=== PATIENT | female | born 2005 | race Two or more races ===

== ENCOUNTER 2023-12-31 14:35 | Outpatient (RCR) | payer MEDICAID, SELFPAY | END 2024-01-01 23:59 | disposition home or self-care (01) | LOC: CPTX 14:35 | PROVIDERS: PCP Family Medicine; Referring Provider Family Medicine; Visit Provider Family Medicine | DX: Z53.8 Procedure and treatment not carried out for other reasons (principal) ==

== ENCOUNTER 2024-04-23 04:03 | Emergency (ER) | payer MEDICAID, SELFPAY ==
[2024-04-23 04:04] VITALS: BMI 37.2
[2024-04-23 04:21] VITALS: BP 119/82; PULSE 120; RESP 20; TEMP 38; O2SAT 96
--- NOTE | 2024-04-23 04:52 | PD.EDURI ---
Upper Respiratory Inf. RME/HPI General Chief Complaint: Flu Like Symptoms Stated Complaint: COUGH, CHILLS Time Seen by Provider: 04/23/24 04:34 Arrival date/time: 04/23/24 04:03 18F with no significant PMH presents to ED with 3 days of cough and fevers/chills. Son has Flu A. Limitations: no limitations Related Data Home Medications ?Medication ?Instructions ?Recorded ?Confirmed [id number] 1 mg 1 tab PO QDAY 04/13/22 05/12/22 tablet aspirin 81 mg chewable tablet 81 mg PO QDAY 04/15/22 05/12/22 ferrous sulfate 325 mg (65 mg 325 mg PO QDAY 04/15/22 05/12/22 iron) capsule,extended release Previous Rx's ?Medication ?Instructions ?Recorded acetaminophen 300 mg-codeine 15 mg 1 tab PO Q12H PRN pain #14 tabs 06/01/22 tablet amoxicillin 500 mg-potassium 1 tab PO Q12H #30 tabs 06/01/22 clavulanate 125 mg tablet (Augmentin) nifedipine 30 mg tablet,extended 30 mg PO QDAY #30 tabs 06/01/22 release 24 hr (Procardia XL) prednisone 50 mg tablet 50 mg PO QDAY #5 tabs 10/02/22 loratadine 10 mg capsule 10 mg PO QDAY #30 caps 10/04/22 Allergies Allergy/AdvReac Type Severity Reaction Status Date / Time Penicillins Allergy Verified 04/23/24 04:05 Review of Systems Review of Systems Systems Reviewed: All systems reviewed, normal except as documented Constitutional Constitutional: Reports system reviewed and no additional complaints, except as documented, Reports as per HPI, Reports chills, Reports fever(s) and Denies headache(s) ENT Ears, Nose, Mouth, and Throat: Denies disequilibrium and Denies headache(s) Cardiovascular Cardiovascular: Reports system reviewed and no additional complaints, except as documented, Denies chest pain and Denies dyspnea Respiratory Respiratory: Reports system reviewed and no additional complaints, except as documented, Reports as per HPI, Reports cough and Denies dyspnea Gastrointestinal Gastrointestinal: Reports system reviewed and no additional complaints, except as documented, Denies abdominal pain, Denies nausea and Denies vomiting Neurologic Neurologic: Reports system reviewed and no additional complaints, except as documented, Denies confusion, Denies disequilibrium and Denies headache(s) Psychiatric Psychiatric: Denies confusion Past Medical History Past Medical History NEUROLOGIC: Negative Neurological Disorders CARDIAC: Negative Cardiac Disorders or Congestive Heart Failure RESPIRATORY: Negative Chronic Obstructive Pulmonary Disease (COPD) GASTROINTESTINAL: Negative Gastrointestinal Disorders, Hepatitis or Colorectal Cancer GENITOURINARY: Negative Genitourinary Disorders, Renal Disease or Prostate Cancer REPRODUCTIVE: Negative Breast Cancer, Pelvic Inflammatory Disease or Testicular Cancer MUSCULOSKELETAL: Negative Musculoskeletal Disorders, Bone Cancer or Carpal Tunnel Syndrome ENT: Negative Cataracts ENDOCRINE: Negative Endocrine Disorders, Diabetes Mellitus Type 1 or Diabetes Mellitus Type 2 HEMATOLOGIC: Negative Blood Disorders OTHER HISTORY: Negative Hospitalization, Autoimmune Disease, Down Syndrome, Developmental Delay, Shingles, Falls, Blood Transfusions, Blood Transfusion Reaction, Anesthesia Reactions, Organ Transplant, Chemotherapy, Radiation Therapy, Hyperbaric Therapy, MRSA, VRSA, Vancomycin-Resistant Enterococci, Human Immunodeficiency Virus (HIV), Chicken Pox, Measles, Mumps, Rubella (Emirati Measles), Pertussis, Clostridium Difficile, Cancer, Breast Cancer, Cervical Cancer, Colorectal Cancer, Lung Cancer, Ovarian Cancer, Prostate Cancer or Testicular Cancer Family History FAMILY HISTORY: Negative Family Cardiac Disorders, Family Cancer, Family Surgery or Family Anesthesia Reaction Surgical History SURGICAL: Negative Cardiac Surgery, Open Heart Surgery, Coronary Artery Bypass Graft, Valve Replacement, Vascular Surgery, Coronary Stent, Cardiac Catheterization, Pacemaker, Angiogram, Auto Implanted Cardiovert Defib, Carotid Endarterectomy, Endocrine Surgery, Thyroidectomy, Ear Surgery, Tympanostomy Tube, Eye Surgery, Nose Surgery, Oral Surgery, Tonsillectomy, Adenoidectomy, Cochlear Implant, Corneal Transplant, Throat Surgery, Abdominal Surgery, Tracheostomy, Gastric Bypass Surgery, Gastrostomy, Bowel Surgery, Nephrectomy, Transurethral Resection, Joint Replacement, Amputation, Open Reduction Internal Fixation, Arthroscopy, Neurologic Surgery, Brain Shunt, Mastectomy, Lumpectomy, Hysterectomy, Tubal Ligation, Section, Vasectomy or Organ Transplant Social History SMOKING STATUS: Never smoker SECOND HAND EXPOSURE: No ED Exam General Limitations: Present no limitations General appearance: Present alert and in no apparent distress Head Head exam: Present atraumatic Eye Eye exam: Present normal appearance, PERRL and EOMI ENT ENT exam: Present normal exam, normal oropharynx and mucous membranes moist Neck Neck exam: Present normal inspection, full ROM and trachea midline Chest Chest inspection: Present normal inspection and symmetric chest wall rise Respiratory Respiratory exam: Present normal lung sounds bilaterally Cardiovascular Cardiovascular exam: Present regular rate, normal rhythm and normal heart sounds Abdominal Exam Abdominal exam: Present soft and normal bowel sounds Extremities Exam Extremities exam: Present normal inspection and full ROM Back Exam Back exam: Present normal inspection and full ROM Neurological Exam Neurological exam: Present alert, oriented X3 and CN II-XII intact Psychiatric Psychiatric exam: Present normal affect and normal mood Skin Skin exam: Present warm, dry, intact and normal color Course Quality Measures none Vital Signs Vital signs: Vital Signs Temperature 100.4 F 04/23/24 04:21 Pulse Rate 120 H 04/23/24 04:21 Respiratory Rate 20 04/23/24 04:21 Blood Pressure 119/82 04/23/24 04:21 Pulse Oximetry (%) 96 04/23/24 04:21 Oxygen Delivery Method Room Air 04/23/24 04:21 O2 at 96% on RA and WNLs Upper Respiratory Infection MDM Narrative MDM Narrative:: 18F with no significant PMH presents to ED with 3 days of cough and fevers/chills. Son has Flu A. Physical exam reveals clear ENT and lungs. Patient is afebrile, calm, and alert. Likely influenza. Patient data External records reviewed:: [facility] previous records Clinical information provided by:: patient Social determinants that could affect healthcare access:: none Patient has the following chronic illnesses:: none How is presenting disease/condition affected by chronic disease/condition?: no chronic disease Evaluation data The following diagnostics were reviewed and interpreted by me:: other (specify) (none) Lab and/or radiology exams considered but not ordered:: not ordered Interpretation Summary: n/a Medications / Prescriptions Medications or Prescriptions considered but not ordered:: not ordered Medication administrations:: n/a Consultations Consultation(s) initiated? (list below): No Diagnosis Upper Respiratory Differential Diagnosis: upper respiratory infection, croup, otitis media, sinusitis, viral infection, bronchitis, influenza and pharyngitis Most likely diagnosis given after review of the tests above:: influenza Admission Indicated Admission indicated?: not indicated Admission Request Was there a request for admission?: No Disposition Plan Disposition Plan: Discharge Discharge Attestation Discharge Attestation: The patient and all family members were given an opportunity to ask questions and understood the discharge instructions. Discharge instructions specifically effects, indications for sooner follow up or return to the emergency department, and the expected course of current diagnosis. Patient condition: Stable Discharge Plan Plan Patient Disposition: HOME (Self Care) Disposition Comment: Stable Prescriptions/Referrals Prescriptions/Med Rec: No Action 1 mg Tablet 1 tab PO QDAY nifedipine [Procardia XL] 30 mg tablet extended release 24hr 30 mg PO QDAY Qty: 30 0RF acetaminophen-codeine 300-15 mg tablet 1 tab PO Q12H PRN (Reason: pain) Qty: 14 0RF amoxicillin-pot clavulanate [Augmentin] 500-125 mg tablet 1 tab PO Q12H Qty: 30 0RF prednisone 50 mg tablet 50 mg PO QDAY Qty: 5 0RF loratadine 10 mg capsule 10 mg PO QDAY Qty: 30 0RF aspirin [Baby Aspirin] 81 mg Tablet,Chewable 81 mg PO QDAY ferrous sulfate 325 mg (65 mg iron) Capsule, Extended Release 325 mg PO QDAY Problem List Clinical Impression: Influenza Patient/Caregiver Discharge Instructions Education Materials: ED Influenza (Adult) Additional Instructions: Please follow-up with PCP within 24-48 hours and return immediately if symptoms worsen. Ibuprofen/Tylenol can be used simultaneously for greater fever/pain control. Benadryl is good for cough, congestion, and sleep. Print Language: Welsh Stand Alone Forms: Patient Portal Info Letter PA/RETAIL PERSONAL BANKER Supervising Physician PA/RETAIL PERSONAL BANKER Supervising Physician: Dr. Mercado
== END 2024-04-23 04:56 | disposition home or self-care (01) ==
LOC: SERX 05:03
PROVIDERS: Emergency Provider Emergency Medicine; PCP Obstetrics & Gynecology
DX: J11.1 Influenza due to unidentified influenza virus with other respiratory manifestations (principal)
CPT/HCPCS: 99281

== ENCOUNTER 2025-02-22 12:33 | Observation (INO) | payer MEDICAID, SELFPAY ==
[2025-02-22] VITALS (10 sets, daily range): BP systolic 112; BP diastolic 60; PULSE 93–106; RESP 17–100; TEMP 36.8; O2SAT 97–98; BMI 43.2
== END 2025-02-22 13:55 | disposition home or self-care (01) ==
PROVIDERS: Admitting Provider Specialist; Visit Provider Specialist
DX: O26.853 Spotting complicating pregnancy, third trimester (principal); Z3A.34 34 weeks gestation of pregnancy
CPT/HCPCS: 59025; 59899

== ENCOUNTER 2025-03-19 05:32 | Inpatient (IN) | payer MEDICAID, SELFPAY ==
[2025-03-16 09:14] LABS: Basophils # (Auto) 0.1 Thou/mm3 (0.0-0.2); Basophils % (Auto) 1 % (0-2.5); Eosinophils # (Auto) 0.1 Thou/mm3 (0.0-0.5); Eosinophils % (Auto) 3 % (0-10); Hematocrit 33.2 % (36.0-46.0); Hemoglobin 11.7 g/dL (12.0-16.0); Immature Granulocytes Auto 0.01 Thou/mm3 (0.00-0.00); Lymphocytes # (Auto) 1.6 Thou/mm3 (1.0-4.8); Lymphocytes % (Auto) 28 % (10-50); Mean Corpuscular HGB Conc 35.2 g/dl (31.0-37.0); Mean Corpuscular Hemoglobin 30.2 pg (25.0-35.0); Mean Corpuscular Volume 86 fL (80-100); Monocytes # (Auto) 0.5 Thou/mm3 (0.0-0.8); Monocytes % (Auto) 8 % (0-12); Neutrophils # (Auto) 3.4 Thou/mm3 (1.8-7.7); Neutrophils % (Auto) 60 % (37-80); Nucleated Red Blood Cell # 0.00 Thou/mm3 (0.00-0.00); Nucleated Red Blood Cell % 0 /100 WBC (0); Platelet Count 203 Thou/mm3 (140-440); RDW Standard Deviation 38.5 fL (36.4-46.3); Red Blood Count 3.88 Miln/mm3 (4.00-5.20); White Blood Count 5.7 Thou/mm3 (3.6-11.0)
[2025-03-16 09:30] LABS: INR 1.0 (0.9-1.3); Partial Thromboplastin Time 28.5 Seconds (22.0-36.0); Prothrombin Time 10.3 Seconds (9.0-12.2)
[2025-03-16 09:34] LABS: Alanine Aminotransferase 27 U/L (10-49); Albumin, Serum 4.0 gm/dL (3.5-5.0); Albumin/Globulin Ratio 2.1 (1.2-2.2); Alkaline Phosphatase 148 U/L (46-116); Anion Gap 12 (7-16); Aspartate Amino Transferase 28 U/L (0-34); BUN/Creatinine Ratio 16 Ratio (12-20); Bilirubin,Total 0.3 mg/dL (0.3-1.2); Blood Urea Nitrogen 8 mg/dL (9-23); Calcium 8.8 mg/dL (8.3-10.6); Calcium (Corrected) 8.8 mg/dL (8.5-10.1); Carbon Dioxide 22.4 mMol/L (20.0-31.0); Chloride 106 mMol/L (98-107); Creatinine (Component) 0.5 mg/dL (0.6-1.3); Globulin 1.9 gm/dL (2.3-3.5); Glucose 92 mg/dL (74-106); Osmolality,Calculated 277 (275-295); Potassium 4.0 mMol/L (3.4-5.1); Sodium 140 mMol/L (136-145); Total Protein 5.9 gm/dL (5.7-8.2); eGFR > 60 See Note
[2025-03-16 09:57] LABS: Syphilis Nonreactive (Nonreactive)
--- NOTE | 2025-03-17 13:17 | ESHP_ITS ---
RE: MEMO PATEL : 2005 DATE OF ADMISSION: 03/19/2025 HISTORY OF PRESENT ILLNESS: This is a 19-year-old 2, para 1-0-0-1 with due date of 04/02/2025 with intrauterine at 38 weeks and 0 days on March 19 who presents for repeat delivery. Patient's care has been complicated by borderline systolic hypertension. She does not take any antihypertensives. Patient is a gestational diabetic, diet controlled. ALLERGIES: PENICILLIN. MEDICATIONS: 1. multivitamin one p.o. daily. 2. Aspirin 81 mg one p.o. daily. PAST MEDICAL HISTORY: delivery, gestational hypertension, gestational diabetes mellitus class A1, body mass index 45. OBSTETRIC HISTORY: May 2022, 37 weeks delivery, 5 pounds 7 ounce male. PAST SURGICAL HISTORY: delivery 2022. REVIEW OF SYSTEMS: Denies any chest pain, palpitations, cough, fever, shortness of breath or lower extremity pain. PHYSICAL EXAMINATION: Blood pressure 155/88, heart rate 82, respirations 19, temperature is 98.6. HEENT: Oropharynx and sclerae clear. Lungs: Clear to auscultation bilaterally. Heart: Regular rate and rhythm. Abdomen: Gravid consistent with estimated weight 8 pounds. Pelvic: See RN notes. Extremities: Nontender. Skin: No gross rashes or lesions. Neurological: No focal deficits. ASSESSMENT AND PLAN: Intrauterine at 38 weeks, HTN, GDMA1, Previous delivery, elects repeat delivery.. Repeat delivery. Informed consent was obtained. The patient made aware of the risks, complications, alternative, and benefits of the proposed procedure and she agrees. DT: 10:17:23 TT: 13:16:00 Ref: [id number] - TID: [id number] MTDD
[2025-03-19] VITALS (19 sets, daily range): BP systolic 115–146; BP diastolic 77–91; PULSE 89–117; RESP 16–30; TEMP 36.7–37.1; O2SAT 96–99; BMI 45.0
[2025-03-19] MEDS: RINGERS LACTATED 1000 ML 1,000 ML 999 ML IV (06:00)
[2025-03-19 06:18] LABS: Collection Type, Urine Clean Catch
[2025-03-19 06:40] LABS: Alanine Aminotransferase 28 U/L (10-49); Albumin, Serum 4.2 gm/dL (3.5-5.0); Albumin/Globulin Ratio 2.1 (1.2-2.2); Alkaline Phosphatase 160 U/L (46-116); Anion Gap 11 (7-16); Aspartate Amino Transferase 24 U/L (0-34); BUN/Creatinine Ratio 24 Ratio (12-20); Bilirubin,Total 0.3 mg/dL (0.3-1.2); Blood Urea Nitrogen 12 mg/dL (9-23); Calcium 9.4 mg/dL (8.3-10.6); Calcium (Corrected) 9.4 mg/dL (8.5-10.1); Carbon Dioxide 22.6 mMol/L (20.0-31.0); Chloride 106 mMol/L (98-107); Creatinine (Component) 0.5 mg/dL (0.6-1.3); Estimated Creatinine Clearance 217.9 mL/min (>60); Globulin 2.0 gm/dL (2.3-3.5); Glucose 104 mg/dL (74-106); LDH (Lactate Dehydrogenase) 169 U/L (120-246); Osmolality,Calculated 279 (275-295); Potassium 4.1 mMol/L (3.4-5.1); Sodium 140 mMol/L (136-145); Total Protein 6.2 gm/dL (5.7-8.2); Uric Acid 4.1 mg/dL (3.1-7.8); eGFR > 60 See Note
[2025-03-19 06:44] LABS: Basophils # (Auto) 0.0 Thou/mm3 (0.0-0.2); Basophils % (Auto) 1 % (0-2.5); Eosinophils # (Auto) 0.1 Thou/mm3 (0.0-0.5); Eosinophils % (Auto) 1 % (0-10); Hematocrit 35.1 % (36.0-46.0); Hemoglobin 12.2 g/dL (12.0-16.0); Immature Granulocytes Auto 0.02 Thou/mm3 (0.00-0.00); Lymphocytes # (Auto) 2.0 Thou/mm3 (1.0-4.8); Lymphocytes % (Auto) 29 % (10-50); Mean Corpuscular HGB Conc 34.8 g/dl (31.0-37.0); Mean Corpuscular Hemoglobin 30.3 pg (25.0-35.0); Mean Corpuscular Volume 87 fL (80-100); Monocytes # (Auto) 0.5 Thou/mm3 (0.0-0.8); Monocytes % (Auto) 7 % (0-12); Neutrophils # (Auto) 4.3 Thou/mm3 (1.8-7.7); Neutrophils % (Auto) 62 % (37-80); Nucleated Red Blood Cell # 0.00 Thou/mm3 (0.00-0.00); Nucleated Red Blood Cell % 0 /100 WBC (0); Platelet Count 220 Thou/mm3 (140-440); RDW Standard Deviation 39.5 fL (36.4-46.3); Red Blood Count 4.02 Miln/mm3 (4.00-5.20); White Blood Count 7.0 Thou/mm3 (3.6-11.0)
--- NOTE | 2025-03-19 06:52 | PD.ADDHP ---
Addendum History & Physical Addendum Date of report being addended: 03/19/25 Narrative: Pt examined . No changes .
--- NOTE | 2025-03-19 06:53 | ESOP_ITS ---
Operative Note - MEDICAL PARASITOLOGIST Procedure Date of procedure: 03/19/25 Procedure Performed: Repeat Low Transverse Delivery via Pfanensteil Skin Incision Indication: IUP 38w0d HTN Prior C/S elects Repeat C/S Pre-Op diagnosis: IUP 38w0d HTN Prior C/S elects Repeat C/S Post-Op diagnosis: IUP 38w0d HTN Prior C/S elects Repeat C/S Anesthesia type: Spinal Procedure description: After proper informed consent was obtained and the patient was made aware of the risks, complications, alternatives and benefits of the proposed procedure she was taken to the operating room where she underwent induction of spinal anesthesia. She was prepped and draped in the usual sterile fashion. A timeout was performed.? A Pfannenstiel skin incision was made with the scalpel and carried through to the underlying layer of fascia with the Bovie. The fascia was nicked in the midline incision and the incision was extended bilaterally with the Bovie. The inferior aspect of the fascial incision was grasped with Jad clamps elevated and the underlying rectus muscle dissected off with the Bovie. The superior aspect the fascial incision was grasped with Jad clamps elevated and the underlying rectus muscle dissected off with the Bovie. The rectus muscles were in the midline. The peritoneum was grasped between 2 Kramer clamps and entered sharply with the Metzenbaum scissors. The peritoneum was extended superiorly and inferiorly with good visualization of the bladder. The vesicouterine peritoneum was incised transversely and the bladder flap created digitally. A [place] blade was inserted. A low transverse incision was made in the uterus with a scapel and the incision was extended digitally. The 's head delivered and the mouth and nose were suctioned with the bulb suction. The shoulder and body delivered atraumatically. The cord was clamped after 30 second delayed cord clamping and the cord was cut.? The live female was handed off to the waiting Pediatric staff, cord blood was collected for lab testing. The placenta was removed complete and intact. The uterus was exteriorized and cleared of all clots and debris. The uterine incision was closed with #1-0 chromic catgut suture in a running interlocking fashion. A second layer of the same suture was used to imbricate the first layer and obtain excellent hemostasis. The vesicouterine peritoneum was closed with 2-0 chromic catgut suture in a running fashion. The firm uterus was returned to the abdomen. The gutters were cleared of all clots and debris. The peritoneum was closed with 0 chromic catgut suture in running fashion. The rectus muscle was closed with 0 chromic catgut suture. The fascia was closed with 0 Vicryl beginning at each angle and ending in the center in a running fashion. The subcutaneous tissue was irrigated with warmed normal saline solution and found to be hemostatic. The subcutaneous tissue was closed with 2-0 chromic catgut suture in a running fashion. The skin was closed with 4-0 Monocryl. A Dermabond Prineo dressing was applied and a sterile pressure dressing was applied.? She tolerated the procedure well. Counts were correct. I discussed with the patient the nature of her condition, intraoperative findings and expectation for recovery all? questions answered Specimen: none Estimated blood loss (ml): 700 Findings: Live baby girl APGARS 8 and 9 Weight 8lbs 3 oz. Amniotic fluid clear Cephalic Placenta removed complete and intact Normal appearing uterus, ovaries and tubes Complications: none Surgical staff Daniel Sam, Surgeon Nikolay ANDREWS Operation Date: 03/19/25 07:45 <No data on this case meets the specified criteria> Diagnosis Discharge Diagnosis (1) delivery delivered: Status: Acute Problem List Completed Was Problem List Reviewed/Reconciled?: Yes
--- NOTE | 2025-03-19 06:53 | PD.LDDS ---
DS: Providers Provider Date of admission: 03/19/25 05:32 Primary care physician: Physician No Primary/Family Admitting Provider: Sagar Sam MD Attending Provider on Admission: Sagar Sam MD Attending Provider on DC: Sagar Sam MD Discharging Provider: Sagar Sam MD DS: Diagnosis Problem List Completed Was Problem List Reviewed/Reconciled?: Yes Summary/Hosp Course Peripartum Data Delivery Method: Low Transverse Procedures: Procedures Operation Date: 03/19/25 07:45 <No data on this case meets the specified criteria> Time Spent with Patient Time attestation: Total time spent providing and/or coordinating discharge services: Exam Vital Signs Temp Pulse Resp BP Pulse Ox O2 Del Method 98.2 F 96 16 132/91 H 99 Room Air 03/19/25 05:51 03/19/25 05:57 03/19/25 05:51 03/19/25 05:57 03/19/25 06:01 03/19/25 05:51 Discharge Plan Plan Patient Disposition: HOME (Self Care) Patient condition on transfer: Stable Prescriptions/Referrals Prescriptions/Med Rec: New ibuprofen 600 mg tablet 600 mg PO Q6H PRN (Reason: fever or pain) Qty: 30 0RF Continued lzyxnqgw-[id number]-Pb-FA 1 mg Tablet 1 tab PO QDAY Discontinued aspirin [Baby Aspirin] 81 mg Tablet,Chewable 81 mg PO QDAY Referrals: No Primary/Family,Physician [Primary Care Provider] Patient/Caregiver Discharge Instructions Discharge Activity: activity as tolerated Other Discharge Activity Instructions:: Follow up office 1 weeks. Education Materials: C Section Dc Print Language: Syrian Stand Alone Forms: Nila Award Info., Patient Portal Info Letter Planned Discharge Date 03/21/25
[2025-03-19 06:54] LABS: Fibrinogen 525 mg/dL (175-375); INR 1.0 (0.9-1.3); Partial Thromboplastin Time 28.5 Seconds (22.0-36.0); Prothrombin Time 10.2 Seconds (9.0-12.2)
[2025-03-19 06:58] LABS: Syphilis Nonreactive (Nonreactive)
[2025-03-19 07:06] LABS: Bacteria,Urine Rare; Bilirubin,Urine Negative (Negative); Blood,Urine Negative (Negative); Clarity,Urine Clear (Clear/Hazy); Color,Urine Lt-Yellow (Lt Yel-Yel); Glucose, Urine Negative (Negative); Ketones,Urine Negative (Negative); Leukocyte Esterase,Urine Positive (Negative); Nitrite,Urine Negative (Negative); PH,Urine 6.5 (5.0-7.0); Protein,Urine Negative (Neg - Trace); RBC,Urine 1 /hpf (0-3); Specific Gravity,Urine 1.026 (1.001-1.035); Squamous Epithelial Cell,Urine 10 /hpf (0-5); Urobilinogen,Urine Negative mg/dL (0.0-1.0); WBC,Urine 1 /hpf (0-5)
[2025-03-19 07:23] LABS: Creatinine,Random Urine 80 mg/dL (30-125); Protein Total, Random Urine 29 mg/dL (1-14)
[2025-03-19] MEDS: CLINDAMYCIN 900MG IVPB 900 MG in PRE-MIXED 1 BAG 50 MG IV (07:25)
[2025-03-19] MEDS: METOCLOPRAMIDE INJ 5 MG/ML VIAL 2 ML 10 MG IVP (07:26)
[2025-03-19] MEDS: FAMOTIDINE INJ 10 MG/ML VIAL 2 ML 20 MG IV (07:26)
[2025-03-19] MEDS: GENTAMICIN/NS 80 MG IVPB 80 MG in PRE-MIXED 1 BAG 50 MG IV (07:26)
--- NOTE | 2025-03-19 08:59 | PD.LDDELS ---
Data ([place]) Data Hx Section: Yes (x1) : 2 Term: 1 : 0 Livin Abortions: Spontaneous & Theraputic: 0 Delivery Data ([place]) Labor Data Induction/Augmentation Agent: None ROM date: 03/19/25 ROM time: 08:16 Amniotic membrane rupture type: Artificial Amniotic fluid description: Clear Delivery Data EDC: 04/02/25 EDC calculated by:: LMP/early US confirmation Onset of labor date: 03/19/25 Onset of labor time: 08:16 Complete dilation date: 03/19/25 Complete dilation time: 08:16 delivery date: 03/19/25 [place] delivery time: 08:17 Gestational age (weeks): 38 Gestational age (days): 0 Placenta delivery date: 03/19/25 Placenta delivery time: 08:18 Stage 1 total time: Labor - Stage 1 Duration 0 minutes Delivered by: [place] Delivery nurse: Tad Munoz nurse: Serena Frame Bender at delivery: Yes ([place]) Support person(s) at delivery: FOB Other staff at delivery: Tanya, JAEL Rae, CHIEF INFORMATION SECURITY OFFICER [place], OB OR Tech Delivery Method Delivery method: Low Transverse Presentation: Vertex position: OP Anesthesia Type Anesthesia Type: Spinal Anesthesia type: Spinal Placenta Cord blood sent to lab: Yes cord blood collection: Cord Blood Type Episiotomy Episiotomy description: None EBL Estimated blood loss (ml): 700 Umbilical Cord cord description: 3 Vessels, Nuchal Cord and Reduced Additional Procedures None Complications Complications: None [place] Data ([place]) [place] Data order: 1 's gender: Female Identification band number: [id number] weight (gms): 8 lb 2.866 oz Weight (pounds): 8 lbs and 2.9 ozs [place] length: 20 in 1 minute: 8 5 minutes: 9
[2025-03-19] MEDS: ONDANSETRON INJ 2 MG/ML INJ 2 ML 4 MG IVP (09:22)
[2025-03-19 14:40] LABS: Basophils # (Auto) 0.0 Thou/mm3 (0.0-0.2); Basophils % (Auto) 0 % (0-2.5); Eosinophils # (Auto) 0.0 Thou/mm3 (0.0-0.5); Eosinophils % (Auto) 0 % (0-10); Hematocrit 30.5 % (36.0-46.0); Hemoglobin 10.8 g/dL (12.0-16.0); Immature Granulocytes Auto 0.05 Thou/mm3 (0.00-0.00); Lymphocytes # (Auto) 1.5 Thou/mm3 (1.0-4.8); Lymphocytes % (Auto) 12 % (10-50); Mean Corpuscular HGB Conc 35.4 g/dl (31.0-37.0); Mean Corpuscular Hemoglobin 31.0 pg (25.0-35.0); Mean Corpuscular Volume 88 fL (80-100); Monocytes # (Auto) 0.8 Thou/mm3 (0.0-0.8); Monocytes % (Auto) 7 % (0-12); Neutrophils # (Auto) 10.3 Thou/mm3 (1.8-7.7); Neutrophils % (Auto) 81 % (37-80); Nucleated Red Blood Cell # 0.00 Thou/mm3 (0.00-0.00); Nucleated Red Blood Cell % 0 /100 WBC (0); Platelet Count 190 Thou/mm3 (140-440); RDW Standard Deviation 39.7 fL (36.4-46.3); Red Blood Count 3.48 Miln/mm3 (4.00-5.20); White Blood Count 12.7 Thou/mm3 (3.6-11.0)
[2025-03-19] MEDS: OXYTOCIN in NS 20 units 20 UNIT/1,000 ML BAG 125 UNIT IV (17:31)
[2025-03-19] MEDS: KETOROLAC INJ 30 MG/ML VIAL IVP (21:07)
[2025-03-20] VITALS: BP 133/84; PULSE 91; RESP 16; TEMP 36.8; O2SAT 96
[2025-03-20 03:58] VITALS: BP 133/82; PULSE 95; RESP 18; TEMP 36.9; O2SAT 97
[2025-03-20] MEDS: DOCUSATE SOD 100 MG CAPSULE PO (07:35)
[2025-03-20] MEDS: IBUPROFEN TAB 400 MG TABLET 800 MG PO ×2 (07:35→17:00)
[2025-03-20 08:00] VITALS: BP 133/81; PULSE 89; RESP 18; TEMP 36.7; O2SAT 97
[2025-03-20] MEDS: ENOXAPARIN SOD INJ 40 MG/0.4 ML SYRINGE SC (09:29)
--- NOTE | 2025-03-20 09:39 | ESPR_ITS ---
RE: MEMO PATEL : 2005 DATE OF SERVICE: 03/20/2025 SUBJECTIVE: Postop day #1. Patient denies any problem or complaints. She is voiding, she is ambulating, she is tolerating her regular diet. She is passing flatus. She denies any excessive vaginal bleeding. She denies any dizziness or lightheadedness. She denies any chest pain, palpitations, shortness of breath, or lower extremity pain. OBJECTIVE: VITAL SIGNS: Blood pressure 133/81, heart rate 86, respirations 18, temperature is 98.1. Pulse ox is 97% on room air. LUNGS: Clear to auscultation bilaterally. Heart: Regular rate and rhythm. Abdomen: Dressing dry and intact, fundus is firm. Extremities: Nontender. ASSESSMENT: Postop day #1 status post delivery. PLAN: Discharge home. Discharge instructions given. Follow up in the office in 1 week. DT: 09:27:11 TT: 09:39:00 Ref: [id number] - TID: [id number]
[2025-03-20 12:00] VITALS: BP 121/76; PULSE 90; RESP 18; TEMP 36.7; O2SAT 97
[2025-03-20 19:39] VITALS: BP 126/82; PULSE 102; RESP 15; TEMP 36.4; O2SAT 98
[2025-03-21 03:20] VITALS: BP 134/88; PULSE 109; RESP 18; TEMP 37.4; O2SAT 98
[2025-03-21] MEDS: IBUPROFEN TAB 400 MG TABLET 800 MG PO (03:27)
--- NOTE | 2025-03-21 06:46 | ESPR_ITS ---
RE: MEMO PATEL : 2005 DATE OF SERVICE: 03/21/2025 SUBJECTIVE: Postoperative day #2. Patient denies any problem or complaint. She is voiding. She is ambulating. She is tolerating her diet. She is passing flatus. She denies any excessive vaginal bleeding. She denies any dizziness or lightheadedness. She denies any chest pain, palpitation, shortness of breath, or lower extremity pain. OBJECTIVE: VITAL SIGNS: Blood pressure is 134/88, heart rate 109, respirations 18, temperature is 99.3. LUNGS: Clear to auscultation bilaterally. HEART: Tachycardic but regular rhythm. ABDOMEN: Nondistended. Incision is clear and intact. Fundus is firm. EXTREMITIES: Nontender. ASSESSMENT AND PLAN: Postoperative day #2 status post delivery. Plan discharge home. Discharge instructions given. Follow up in the office in 1 week. DT: 06:08:07 TT: 06:44:00 Ref: [id number] - TID: [id number]
[2025-03-21 08:00] VITALS: BP 124/81; PULSE 86; RESP 18; TEMP 37; O2SAT 97
[2025-03-21] MEDS: ENOXAPARIN SOD INJ 40 MG/0.4 ML SYRINGE SC (08:27)
[2025-03-21] MEDS: DOCUSATE SOD 100 MG CAPSULE PO (08:27)
== END 2025-03-21 11:01 | disposition home or self-care (01) | DRG 540 ==
LOC: S4SX 06:58 → S4NX 07:49
PROVIDERS: Admitting Provider Specialist; Visit Provider Specialist
PROC: 10D00Z1 Extraction of Products of Conception, Low, Open Approach (ICD-10-PCS; CPT 59514; principal; 2025-03-19 07:30)
DX: O34.211 Maternal care for low transverse scar from previous cesarean delivery (principal); O16.4 Unspecified maternal hypertension, complicating childbirth; Z37.0 Single live birth; Z3A.38 38 weeks gestation of pregnancy; O24.420 Gestational diabetes mellitus in childbirth, diet controlled
CPT/HCPCS: 36415; 80053; 81001; 82570; 83615; 84156; 84550; 85025; 85384; 85610; 85730; 86780; 86850; 86900; 86901; A4217; A4314; A4649; J0736; J1580; J1650; J1885; J2274; J2405; J2590; J2765; J3010; J3490; J7120; A9270; J2270

== ENCOUNTER 2025-03-28 14:27 | Emergency (ER) | payer MEDICAID, SELFPAY ==
--- NOTE | 2025-03-28 14:55 | PD.EDADULT ---
ED General RME/HPI General Chief complaint: General Adult/Misc Complain Stated complaint: RECTAL PAIN, HX OF HEMORRHOIDS Time Seen by Provider: 03/28/25 14:31 Arrival date/time: 03/28/25 14:27 19-year-old female 9 days presents to the emergency department complaint of hemorrhoid patient was given a prescription for hydrocortisone cream by PCP but patient wanted to come and have evaluation in the Emergency Department Limitations: no limitations Related Data Home Medications ?Medication ?Instructions ?Recorded ?Confirmed [id number] 1 mg 1 tab PO QDAY 04/13/22 03/19/25 tablet Previous Rx's ?Medication ?Instructions ?Recorded ibuprofen 600 mg tablet 600 mg PO Q6H PRN fever or pain 03/19/25 #30 tabs hydrocortisone acetate 25 mg 25 mg LA BID #20 ea 03/28/25 rectal suppository (Anusol-HC) Allergies Allergy/AdvReac Type Severity Reaction Status Date / Time Penicillins Allergy Verified 03/28/25 14:29 Review of Systems Review of Systems Systems Reviewed: All systems reviewed, normal except as documented Constitutional Constitutional: Reports system reviewed and no additional complaints, except as documented, Denies fever(s) and Denies headache(s) Eyes Eyes: Reports system reviewed and no additional complaints, except as documented and Denies blurry vision ENT Ears, Nose, Mouth, and Throat: Reports system reviewed and no additional complaints, except as documented, Denies headache(s), Denies nasal congestion and Denies nasal discharge Cardiovascular Cardiovascular: Reports system reviewed and no additional complaints, except as documented, Denies chest pain and Denies dyspnea Respiratory Respiratory: Reports system reviewed and no additional complaints, except as documented, Denies chest congestion, Denies cough and Denies dyspnea Gastrointestinal Gastrointestinal: Reports system reviewed and no additional complaints, except as documented, Denies abdominal pain and Reports other (Hemorrhoid) Integumentary/Breasts Skin/Breast: Reports system reviewed and no additional complaints, except as documented and Denies rash Neurologic Neurologic: Reports system reviewed and no additional complaints, except as documented, Reports as per HPI and Denies headache(s) Past Medical History Past Medical History NEUROLOGIC: Negative Neurological Disorders or Seizures CARDIAC: Positive Cardiac Disorders (white coat HTN.); Negative Congestive Heart Failure RESPIRATORY: Negative Chronic Obstructive Pulmonary Disease (COPD) GASTROINTESTINAL: Negative Gastrointestinal Disorders, Hepatitis or Colorectal Cancer GENITOURINARY: Negative Genitourinary Disorders, Renal Disease or Prostate Cancer REPRODUCTIVE: Positive Previous Pregnancies (x1); Negative Breast Cancer, Endometriosis, Genital Herpes, Gonorrhea, Pelvic Inflammatory Disease, Syphilis, Testicular Cancer or Uterine Prolapse MUSCULOSKELETAL: Negative Musculoskeletal Disorders, Bone Cancer or Carpal Tunnel Syndrome ENT: Negative Cataracts ENDOCRINE: Negative Endocrine Disorders, Diabetes Mellitus Type 1 or Diabetes Mellitus Type 2 HEMATOLOGIC: Negative Blood Disorders, Anemia, Leukemia, Hemophilia, Thalassemia, Sickle Cell Disease or Clotting Problems OTHER HISTORY: Positive Hospitalization; Negative Autoimmune Disease, Down Syndrome, Developmental Delay, Shingles, Falls, Blood Transfusions, Blood Transfusion Reaction, Anesthesia Reactions, Organ Transplant, Chemotherapy, Radiation Therapy, Hyperbaric Therapy, MRSA, VRSA, Vancomycin-Resistant Enterococci, Human Immunodeficiency Virus (HIV), Chicken Pox, Measles, Mumps, Rubella (Uzbek Measles), Pertussis, Clostridium Difficile, Cancer, Breast Cancer, Cervical Cancer, Colorectal Cancer, Lung Cancer, Ovarian Cancer, Prostate Cancer or Testicular Cancer Family History FAMILY HISTORY: Negative Family Psychiatric Problems, Family Respiratory Disorders, Family Cardiac Disorders, Family Gastrointestinal Problems, Family Cancer, Family Surgery or Family Anesthesia Reaction Surgical History SURGICAL: Positive Section (x1); Negative Cardiac Surgery, Open Heart Surgery, Coronary Artery Bypass Graft, Valve Replacement, Vascular Surgery, Coronary Stent, Cardiac Catheterization, Pacemaker, Angiogram, Auto Implanted Cardiovert Defib, Carotid Endarterectomy, Endocrine Surgery, Thyroidectomy, Ear Surgery, Tympanostomy Tube, Eye Surgery, Nose Surgery, Oral Surgery, Tonsillectomy, Adenoidectomy, Cochlear Implant, Corneal Transplant, Throat Surgery, Abdominal Surgery, Tracheostomy, Gastric Bypass Surgery, Gastrostomy, Bowel Surgery, Nephrectomy, Transurethral Resection, Joint Replacement, Amputation, Open Reduction Internal Fixation, Arthroscopy, Neurologic Surgery, Brain Shunt, Mastectomy, Lumpectomy, Hysterectomy, Tubal Ligation, Vasectomy or Organ Transplant Social History SMOKING STATUS: Never smoker SECOND HAND EXPOSURE: No ED Exam General Limitations: Present no limitations General appearance: Present alert and in no apparent distress Head Head exam: Present atraumatic Eye Eye exam: Present normal appearance, PERRL and EOMI ENT ENT exam: Present normal exam, normal oropharynx and mucous membranes moist Neck Neck exam: Present normal inspection, full ROM and trachea midline Chest Chest inspection: Present normal inspection and symmetric chest wall rise Respiratory Respiratory exam: Present normal lung sounds bilaterally Cardiovascular Cardiovascular exam: Present regular rate, normal rhythm and normal heart sounds Abdominal Exam Abdominal exam: Present soft and normal bowel sounds; Absent distention, tenderness, guarding, rebound or rigidity Rectal Exam Rectal exam: Present hemorrhoids; Absent heme (-) stool, heme (+) stool or black stool Extremities Exam Extremities exam: Present normal inspection and full ROM Back Exam Back exam: Present normal inspection and full ROM Neurological Exam Neurological exam: Present alert, oriented X3 and CN II-XII intact Psychiatric Psychiatric exam: Present normal affect and normal mood Skin Skin exam: Present warm, dry, intact and normal color Course Quality Measures none Discharge Plan Plan Patient Disposition: HOME (Self Care) Discharge Disposition comment: Stable Prescriptions/Referrals Prescriptions/Med Rec: New hydrocortisone acetate [Anusol-HC] 25 mg suppository 25 mg LA BID Qty: 20 0RF No Action [id number] 1 mg Tablet 1 tab PO QDAY ibuprofen 600 mg tablet 600 mg PO Q6H PRN (Reason: fever or pain) Qty: 30 0RF Problem List Clinical Impression: External hemorrhoid Patient/Caregiver Discharge Instructions Education Materials: ED Hemorrhoids Additional Instructions: Please follow up with your primary care doctor in the next 24-48hrs for any worsening symptoms return here immediately Print Language: Marshallese Stand Alone Forms: Nila Award Info., Patient Portal Info Letter PA/DIRECTOR OF BRAND MARKET[employer] Supervising Physician PA/DIRECTOR OF [employer] Supervising Physician: Dr. knight MDM Narrative MDM hospital course (for use when minimal MDM required): 19-year-old female 9 days presents to the emergency department complaint of hemorrhoid patient was given a prescription for hydrocortisone cream by PCP but patient wanted to come and have evaluation in the Emergency Department On exam patient well-appearing does not appear ill or toxic no distress On exam with a female record filing clerk I examined the patient patient does have a small hemorrhoid external Patient discharged with Anusol Patient discharged home in no distress to follow-up with primary care doctor in the next 24 to 48 hours and for any worsening symptoms to return to the ER immediately Clinical Information Provided by: patient Medical Records reviewed [facility] Meds/Rx considered, not ordered None Labs/Rad/Tests considered, not ordered None Chronic Illness/Social Conditions which may negatively complicate care or outcome(s)-explain: None or not applicable EKG EKG not done Labs Labs: none Imaging Imaging interpretation: none Medication Administration(s) Rx given Diagnosis Differential Diagnosis ED Complaint MDM: External hemorrhoid, internal hemorrhoid
[2025-03-28 16:02] VITALS: BP 128/78; PULSE 78; RESP 18; TEMP 36.7; O2SAT 98
== END 2025-03-28 16:03 | disposition home or self-care (01) ==
LOC: SERX 15:16
PROVIDERS: Emergency Provider Emergency Medicine; PCP Nurse Practitioner Family
DX: K62.89 Other specified diseases of anus and rectum (principal)
CPT/HCPCS: 99281